=== PATIENT | male | born 1985 | race African-American/Black ===

== ENCOUNTER 2021-02-10 13:24 | Emergency (ER) | payer MEDICAID ==
[~2021-02-10] VITALS: Ht 175.3 cm; Wt 95.0 kg
[2021-02-10 13:27] VITALS: BP 134/87
[2021-02-10] MEDS ORDERED: CefTRIAXone SODIUM 1 GM/VIAL IM ONE (13:45)
[2021-02-10] MEDS ORDERED: AZITHROMYCIN 500 MG TABLET PO ONE (13:45)
[2021-02-10] MEDS ORDERED: LIDOCAINE/PF 1% 2 ML VIAL IM ONE (13:45)
== END 2021-02-10 14:25 | disposition home or self-care (01) ==
LOC: EMS 13:24
DX: N34.2 Other urethritis (principal)
CPT/HCPCS: 96372; 99283; J0696; J3490; Q9967

== ENCOUNTER 2021-04-26 00:57 | Emergency (ER) | payer MEDICAID ==
[~2021-04-26] VITALS: Ht 175.3 cm; Wt 88.6 kg
[2021-04-26] MEDS ORDERED: IBUPROFEN 800 MG TABLET PO ONE (02:45)
[2021-04-26 03:34] VITALS: BP 117/88
== END 2021-04-26 04:36 | disposition home or self-care (01) ==
LOC: EMS 00:58
DX: S00.511A Abrasion of lip, initial encounter (principal); E78.00 Pure hypercholesterolemia, unspecified; I10 Essential (primary) hypertension; W50.0XXA Accidental hit or strike by another person, initial encounter; Y93.89 Activity, other specified; Y92.89 Other specified places as the place of occurrence of the external cause; Y99.8 Other external cause status
CPT/HCPCS: 99282; Z7502; Z7610